=== PATIENT | male | born 1955 ===

== ENCOUNTER → 2017-08-11 | Outpatient (CLI) | payer OTHER ==
[~2017-08-11] MED LIST: FLONASE16 G1 NS; SWIM EAR DROPS30 ML OT; ZANTAC300 MG PO
== END | disposition home or self-care (01) ==
LOC: RX STUDY 07:29
DX: K44.9 Diaphragmatic hernia without obstruction or gangrene (principal); K57.30 Diverticulosis of large intestine without perforation or abscess without bleeding; R13.10 Dysphagia, unspecified; K22.2 Esophageal obstruction; K29.70 Gastritis, unspecified, without bleeding; K21.9 Gastro-esophageal reflux disease without esophagitis; R12 Heartburn; K64.8 Other hemorrhoids